=== PATIENT | male | born 1995 | race Two or more races ===

== ENCOUNTER 2022-05-03 00:06 | Emergency (ER) | payer MEDICAID ==
[~2022-05-03] VITALS: Ht 172.7 cm; Wt 117.9 kg
[2022-05-03 04:39] LABS: BASOPHILS % (AUTO) 0.2 % (0.0-2.0); EOSINOPHILS % (AUTO) 3.2 % (0.0-6.0); HEMATOCRIT 44 % (39-51); HEMOGLOBIN 14.5 g/dL (13.5-17.5); LYMPHOCYTES # (AUTO) 2.6 K/uL (0.8-4.8); LYMPHOCYTES % (AUTO) 26.2 % (20.0-44.0); MEAN CORPUSCULAR HGB CONC 33 g/dl (31.0-36.0); MEAN CORPUSCULAR VOLUME 87 fL (80-96); MONOCYTES # (AUTO) 0.7 K/uL (0.1-1.30); MONOCYTES % (AUTO) 6.9 % (2.0-12.0); NEUTROPHILS # (AUTO) 6.2 K/uL (1.8-8.9); NEUTROPHILS % (AUTO) 63.5 % (43.0-81.0); PLATELET COUNT (AUTO) 289 K/uL (150-450); WHITE BLOOD COUNT (AUTO) 9.7 K/uL (4.3-11.0)
[2022-05-03 05:01] LABS: ALANINE AMINOTRANSFERASE 49 U/L (12-78); ALBUMIN 3.4 g/dL (3.4-5.0); ALKALINE PHOSPHATASE 120 U/L (46-116); ASPARTATE AMINOTRANSFERASE 27 U/L (15-37); BILIRUBIN,TOTAL 0.3 mg/dL (0.2-1.0); CALCIUM, SERUM 8.4 mg/dL (8.5-10.1); CARBON DIOXIDE 30 mmol/L (21-32); CHLORIDE 106 mmol/L (98-107); CREATININE 0.9 mg/dL (0.6-1.3); GLUCOSE 100 mg/dL (74-106); POTASSIUM 3.6 mmol/L (3.5-5.1); SODIUM SERUM 141 mmol/L (136-145); TOTAL PROTEIN, SERUM 7.4 g/dL (6.4-8.2); UREA NITROGEN, BLOOD 12 mg/dL (7-18)
[2022-05-03 05:07] LABS: BILIRUBIN,URINE NEGATIVE (NEGATIVE); COLOR,URINE YELLOW (YELLOW); LEUKOCYTE ESTERASE ,URINE NEGATIVE (NEGATIVE); NITRITE, URINE NEGATIVE (NEGATIVE); PH,URINE 5.5 (5.0-8.0); PROTEIN,URINE NEGATIVE (NEGATIVE); UGLUCOSE NEGATIVE (NEGATIVE); UROBILINOGEN,URINE 0.2 EU/dL (0.2)
[2022-05-03 05:08] LABS: ACETAMINOPHEN 0 ug/ml (10-30); ALCOHOL, BLOOD < 3 mg/dL (0-0)
--- NOTE | 2022-05-03 09:15 | NUR ---
PT CURRENTLY SLEEPING IN BED, ABLE TO BE AWAKENED. BREAKFAST PROVIDED TO PT BUT STATES WILL EAT IT LATER. NOT IN ACUTE DISTRESS.
--- NOTE | 2022-05-03 09:26 | NUR ---
FAXED CLINICALS TO [facility] INTAKE.
--- NOTE | 2022-05-03 20:25 | NUR ---
BIBS FOR SI W/ NO PLAN, WOULD LIKE MEDICAL CLEARANCE FOR VOLUNTARY ADMIT TO [facility]. PT AWAKE AND ALERT IN NO DISTRESS. PT IN GOWN, SITTER AT BEDSIDE, AND SAFETY MEASURES IN PLACES.
--- NOTE | 2022-05-03 23:41 | NUR ---
TRANSFER INFO PT ACCEPTED AT [facility] UNDER [facility] GARY NUMBER FOR REPORT: [id number]
--- NOTE | 2022-05-03 23:46 | NUR ---
[facility] ETA 45-60 MINUTES.
--- NOTE | 2022-05-04 00:24 | NUR ---
[facility] at bedside for pt transport to [facility]. report givent
[2022-05-04 00:25] VITALS: BP 132/78
--- NOTE | 2022-05-04 00:33 | NUR ---
report [facility]
--- NOTE | 2022-05-04 00:40 | NUR ---
Pt left on gurney with 2 retail manager on stable condition. NAD noted.
== END 2022-05-04 01:01 ==
LOC: ER 00:10
DX: R45.851 Suicidal ideations (principal); F15.10 Other stimulant abuse, uncomplicated; Z20.822 Contact with and (suspected) exposure to COVID-19
CPT/HCPCS: 99285; 85025; 80048; 80076; 81003; 36415; 87426; 80143; 80320; 80307; C9803; G0480